=== PATIENT | female | born 1995 | race Hispanic/Latino ===

== ENCOUNTER 2023-04-26 12:27 | Emergency (ER) | payer OTHER, SELFPAY ==
[2023-04-26 12:38] VITALS: BP 130/81; PULSE 119; RESP 16; TEMP 36.7; O2SAT 98
--- NOTE | 2023-04-26 14:25 | ED.SKABFB ---
HPI - Skin/Abscess/Foreign Bdy General Chief complaint: Skin/Abscess/Foreign Body Stated complaint: cyst that needs drained Time Seen by Provider: 04/26/23 13:20 History of Present Illness HPI narrative: This is a 27-year-old female, with history of Bartholin cyst abscess, most recently drained in August of this year, who returns emergency department complaining of left labial pain for the past several days. This is associated with swelling and small amount of drainage of purulent fluid and 7/10 sharp and pressure-like pain. She does believe she has a repeat Bartholin cyst abscess. Related Data Allergies Allergy/AdvReac Type Severity Reaction Status Date / Time No Known Allergies Allergy Verified 04/26/23 12:28 Review of Systems Review of Systems: CONSTITUTIONAL: Denies fever, chills, or sweats. CARDIOVASCULAR: Denies chest pain, palpitations, or edema. RESPIRATORY: Denies cough or dyspnea. GASTROINTESTINAL: Denies abdominal pain, nausea, vomiting, or diarrhea. GENITOURINARY: Last menstrual period 2 weeks ago, swelling of the left labia with pain denies dysuria or hematuria. SKIN: Denies rash or itching. MUSCULOSKELETAL: Denies back pain, joint pain, or myalgia. NEUROLOGIC: Denies headache, numbness, dizziness, or weakness. PSYCHIATRIC: Denies anxiety or depression. [facility] Past Medical History Medical History (Updated 04/27/23 @ 00:00 by Chante Heath) Bartholin's gland abscess Surgical History Surgical History (Updated 04/26/23 @ 14:30 by Ramiro Morrison MD) No significant past surgical history Social History Social History (Updated 04/26/23 @ 14:30 by Ramiro Morrison MD) Smoking status: Never smoker Alcohol intake: current Drinks per week: 3 Substance use: never Exam Narrative: GENERAL: Well-developed, well-nourished, and in no acute distress. HEAD: Normocephalic, atraumatic. EYES: PERRLA and EOMI. CHEST: Clear to auscultation. No respiratory distress. No wheezes rales or rhonchi HEART: Regular rate and rhythm. No murmur heard. Normal peripheral pulses. ABDOMEN: Soft, nontender, nondistended, normal active bowel sounds. : (Exam chaperoned by female RN Rut) swelling, induration and erythema noted to the inferior aspect of the left labia minora, consistent with Bartholin gland abscess. There is a small amount of purulent drainage at the superior aspect of the mass without an obvious exit point. The external female genitalia is otherwise unremarkable. NEURO: Alert and oriented x3. Moving all 4 limbs purposefully. PSYCH: Normal mood and affect. Course Course Emergency Course: 14:15 - left Bartholin gland abscess drained by me. Please see procedure note. The patient tolerated the procedure well. She politely declines Word catheter placement. Will discharge with recommendation for [facility]'s and gynecology follow-up. Discussed return and emergent precautions including signs/symptoms of acute abdomen. The patient voiced understanding and is comfortable with plan. All questions answered to her satisfaction. Vital Signs Vital signs: Vital Signs Temperature 98.0 F 04/26/23 12:38 Pulse Rate 119 H 04/26/23 12:38 Respiratory Rate 16 04/26/23 12:38 Blood Pressure 130/81 04/26/23 12:38 Pulse Oximetry 98 04/26/23 12:38 Oxygen Delivery Room Air 04/26/23 12:38 Temperature 98.0 F 04/26/23 12:38 Pulse Rate 119 H 04/26/23 12:38 Respiratory Rate 16 04/26/23 12:38 Blood Pressure 130/81 04/26/23 12:38 Pulse Oximetry 98 04/26/23 12:38 Oxygen Delivery Room Air 04/26/23 12:38 Procedures Abscess I/D bartholin's gland: Date of Incision: 04/26/23 Time of Incision: 14:15 Side (if applicable): left Sedation/analgesia: none Local Anesthetic: lidocaine 2% Amount of anesthesia used (mL): 4 Technique: incised with #11 blade Amount of fluid expressed (mL): 5 Irrigation: No Packi
[2023-04-26] MEDS: LIDOCAINE HCL 2% LOCAL INJ 20 ML VIAL INFILTRATE (14:34)
== END 2023-04-26 14:40 | disposition home or self-care (01) ==
LOC: ANHED 14:38
PROVIDERS: Emergency Provider Preventive Medicine Aerospace Medicine
DX: N75.1 Abscess of Bartholin's gland (principal)
CPT/HCPCS: 56420; 99282